=== PATIENT | female | born 1970 | race African-American/Black ===

== ENCOUNTER 2021-12-19 08:08 | Emergency (ER) | payer MEDICAID ==
[~2021-12-19] VITALS: Ht 154.9 cm; Wt 50.0 kg
[~2021-12-19 08:08] MED LIST: HYDR12.518 PO
[2021-12-19] MEDS ORDERED: ACETAMINOPHEN 325MG TABLET PO ONE (08:30)
[2021-12-19] MEDS ORDERED: ACET-2708 MT (09:23)
[2021-12-19 09:34] VITALS: BP 139/75
== END 2021-12-19 09:59 | disposition home or self-care (01) ==
LOC: ER 08:08
DX: S63.591A Other specified sprain of right wrist, initial encounter (principal); M25.531 Pain in right wrist; I10 Essential (primary) hypertension; F12.10 Cannabis abuse, uncomplicated; X58.XXXA Exposure to other specified factors, initial encounter; Y93.89 Activity, other specified; Y92.89 Other specified places as the place of occurrence of the external cause; Y99.8 Other external cause status
CPT/HCPCS: 29125; 73090; 73110; 99284